=== PATIENT | male | born 1940 | race Caucasian/White ===

== ENCOUNTER 2017-10-22 08:43 | Inpatient (IN) | payer MEDICARE ==
[2017-10-22 09:09] LABS: ADD MAN DIFF? NO
[2017-10-22 09:13] LABS: BASO % 0 % (0-3); EOS % 0 % (0-3); HEMATOCRIT 49.8 % (39.0-53.0); HEMOGLOBIN 17.3 g/dL (13.0-17.5); LYMPH # 2.3 x10^3/uL (1.0-4.8); LYMPH % 22 % (24-48); MEAN CORPUSCULAR HEMOGLOBIN 31 pg (25-35); MEAN CORPUSCULAR HGB CONC 35 g/dL (31-37); MEAN CORPUSCULAR VOLUME 89 fL (79-100); MONO # 0.5 x10^3/uL (0.0-1.1); MONO % 5 % (0-9); NEUT # 7.7 x10^3uL (1.8-7.7); NEUT % 73 % (31-73); PLATELET COUNT 384 x10^3/uL (140-400); RED BLOOD COUNT 5.59 x10^6/uL (4.30-5.70); RED CELL DISTRIBUTION WIDTH 13.2 % (11.5-14.5); WHITE BLOOD COUNT 10.5 x10^3/uL (4.0-11.0)
[2017-10-22] MEDS: IV NORMAL SALINE 1000ML BAG 1,000 ML IV (09:15)
[2017-10-22] MEDS: fentaNYL PF VIAL 100 MCG/2 ML VIAL IV ×7 (09:16→22:18)
[2017-10-22 09:23] LABS: ANION GAP 15 (6-14); BLOOD UREA NITROGEN 31 mg/dL (8-26); BUN/CREATININE RATIO 26 (6-20); CALCIUM 9.9 mg/dL (8.5-10.1); CARBON DIOXIDE 22 mmol/L (21-32); CHLORIDE 102 mmol/L (98-107); CREATININE 1.2 mg/dL (0.7-1.3); GFR 58.9; GLUCOSE 159 mg/dL (70-99); POTASSIUM 4.2 mmol/L (3.5-5.1); SODIUM 139 mmol/L (136-145)
[2017-10-22 09:28] LABS: ALBUMIN/GLOBULIN RATIO 1.1 (1.0-1.7); ALK PHOS 93 U/L (46-116); ALT (SGPT) 82 U/L (16-63); AST (SGOT) 11 U/L (15-37); TOTAL BILIRUBIN 0.9 mg/dL (0.2-1.0); TOTAL PROTEIN 7.7 g/dL (6.4-8.2)
[2017-10-22 09:31] LABS: TROPONINI < 0.017 ng/mL (0.000-0.055)
[2017-10-22] MEDS: ONDANSETRON PF 4 MG/2 ML VIAL. IV (11:18)
[2017-10-22 11:22] LABS: BILIRUBIN,URINE NEGATIVE (NEG); CLARITY,URINE CLEAR; COLOR,URINE YELLOW; GLUCOSE,URINE NEGATIVE (NEG); NITRITE,URINE NEGATIVE (NEG); PROTEIN,URINE NEGATIVE (NEG-TRACE); UROBILINOGEN,URINE 0.2 mg/dL (0.2 mg/dL)
[2017-10-22 11:40] LABS: BACTERIA,URINE 0 /HPF (0-FEW); RBC,URINE 0 /HPF (0-2); SQUAMOUS EPITHELIAL CELL,UR OCC /LPF; WBC,URINE OCC /HPF (0-4)
[2017-10-22] MEDS ORDERED: ONDANSETRON PF 4 MG/2 ML VIAL. IV (12:00)
[2017-10-22] MEDS ORDERED: ACETAMINOPHEN 325 MG TABLET. PO (12:00)
[2017-10-22] MEDS ORDERED: fentaNYL PF VIAL 100 MCG/2 ML VIAL IV (12:00)
[2017-10-22 14:21] LABS: POC GLUCOSE 109 mg/dL (70-99)
[2017-10-22] MEDS: LISINOPRIL 20 MG TABLET PO (17:58)
[2017-10-22] MEDS: CYANOCOBALAMIN (VITAMIN B-12) 1,000 MCG TABLET. PO (17:59)
[2017-10-22] MEDS: ASPIRIN CHEWABLE 81 MG TABLET. PO (17:59)
[2017-10-22] MEDS: LEVOTHYROXINE 88 MCG TABLET PO (18:00)
[2017-10-22] MEDS: IMIPRAMINE 25 MG TABLET PO (18:56)
[2017-10-22] MEDS: ATORVASTATIN CALCIUM 40 MG TABLET. PO (19:57)
[2017-10-22 21:07] LABS: POC GLUCOSE 121 mg/dL (70-99)
[2017-10-23] MEDS: fentaNYL PF VIAL 100 MCG/2 ML VIAL IV ×11 (00:23→23:18)
[2017-10-23 04:26] LABS: ADD MAN DIFF? NO
[2017-10-23 04:37] LABS: BASO # 0.1 x10^3/uL (0.0-0.2); BASO % 1 % (0-3); EOS # 0.2 x10^3/uL (0.0-0.7); EOS % 2 % (0-3); HEMATOCRIT 48.8 % (39.0-53.0); HEMOGLOBIN 17.3 g/dL (13.0-17.5); LYMPH # 3.5 x10^3/uL (1.0-4.8); LYMPH % 34 % (24-48); MEAN CORPUSCULAR HEMOGLOBIN 32 pg (25-35); MEAN CORPUSCULAR HGB CONC 35 g/dL (31-37); MEAN CORPUSCULAR VOLUME 90 fL (79-100); MONO # 1.1 x10^3/uL (0.0-1.1); MONO % 11 % (0-9); NEUT # 5.6 x10^3uL (1.8-7.7); NEUT % 53 % (31-73); PLATELET COUNT 379 x10^3/uL (140-400); RED BLOOD COUNT 5.42 x10^6/uL (4.30-5.70); RED CELL DISTRIBUTION WIDTH 13.5 % (11.5-14.5); WHITE BLOOD COUNT 10.4 x10^3/uL (4.0-11.0)
[2017-10-23 05:07] LABS: ANION GAP 7 (6-14); BLOOD UREA NITROGEN 24 mg/dL (8-26); CARBON DIOXIDE 30 mmol/L (21-32); CHLORIDE 103 mmol/L (98-107); CREATININE 1.1 mg/dL (0.7-1.3); GFR 65.1; GLUCOSE 118 mg/dL (70-99); POTASSIUM 4.2 mmol/L (3.5-5.1); SODIUM 140 mmol/L (136-145)
[2017-10-23] MEDS: PANTOPRAZOLE 40 MG TABLET.DR. PO (07:04)
[2017-10-23] MEDS: LEVOTHYROXINE 88 MCG TABLET PO (07:04)
[2017-10-23 08:13] LABS: POC GLUCOSE 108 mg/dL (70-99)
[2017-10-23] MEDS: CYANOCOBALAMIN (VITAMIN B-12) 1,000 MCG TABLET. PO (08:31)
[2017-10-23] MEDS: metFORMIN 500 MG TABLET PO (08:31)
[2017-10-23] MEDS: LISINOPRIL 20 MG TABLET PO (08:31)
[2017-10-23] MEDS: METOPROLOL SUCC 24HR ER 25 MG TAB.ER.24H. PO (08:31)
[2017-10-23] MEDS: ASPIRIN CHEWABLE 81 MG TABLET. PO (08:31)
[2017-10-23] MEDS ORDERED: METHYLSULFONYLMETHANE PO (09:00)
[2017-10-23] MEDS ORDERED: NON FORMULARY ITEM (Lisinopril 1 TAB) PO (09:00)
[2017-10-23] MEDS: IMIPRAMINE 25 MG TABLET PO (09:01)
[2017-10-23] MEDS: HYDROcodone/APAP 7.5/325MG 1 TAB TABLET PO (11:59)
[2017-10-23] MEDS: CYCLOBENZAPRINE 10 MG TABLET. PO ×2 (13:39→21:14)
[2017-10-23 13:46] LABS: POC GLUCOSE 133 mg/dL (70-99)
[2017-10-23] MEDS: GADOBUTROL 10 MMOL/10 ML VIAL IV (14:15)
[2017-10-23] MEDS: ATORVASTATIN CALCIUM 40 MG TABLET. PO (21:14)
[2017-10-23] MEDS: ONDANSETRON PF 4 MG/2 ML VIAL. IV (21:20)
[2017-10-24] MEDS: CYCLOBENZAPRINE 10 MG TABLET. PO ×4 (02:40→23:40)
[2017-10-24] MEDS: fentaNYL PF VIAL 100 MCG/2 ML VIAL IV ×9 (02:40→23:45)
[2017-10-24] MEDS: hydrALAZINE 20 MG/ML VIAL. IVP (03:05)
[2017-10-24] MEDS: LEVOTHYROXINE 88 MCG TABLET PO (05:53)
[2017-10-24] MEDS: PANTOPRAZOLE 40 MG TABLET.DR. PO (05:53)
[2017-10-24] MEDS: metFORMIN 500 MG TABLET PO (08:18)
[2017-10-24] MEDS: METOPROLOL SUCC 24HR ER 25 MG TAB.ER.24H. PO (08:18)
[2017-10-24] MEDS: CYANOCOBALAMIN (VITAMIN B-12) 1,000 MCG TABLET. PO (08:18)
[2017-10-24] MEDS: LISINOPRIL 20 MG TABLET PO (08:19)
[2017-10-24] MEDS: IMIPRAMINE 25 MG TABLET PO (08:19)
[2017-10-24] MEDS: GADOBUTROL 10 MMOL/10 ML VIAL IV (12:30)
[2017-10-24] MEDS: ATORVASTATIN CALCIUM 40 MG TABLET. PO (20:14)
[2017-10-25] MEDS: fentaNYL PF VIAL 100 MCG/2 ML VIAL IV ×5 (02:28→11:22)
[2017-10-25] MEDS: PANTOPRAZOLE 40 MG TABLET.DR. PO (05:11)
[2017-10-25] MEDS: CYCLOBENZAPRINE 10 MG TABLET. PO (05:11)
[2017-10-25] MEDS: LEVOTHYROXINE 88 MCG TABLET PO (05:12)
[2017-10-25 07:47] LABS: POC GLUCOSE 104 mg/dL (70-99)
[2017-10-25] MEDS ORDERED: DEXAMETHASONE SOD PHOS 20 MG/5 ML VIAL. (07:55)
[2017-10-25] MEDS ORDERED: LIDOCAINE 2% PF Vial for OR 5 ML VIAL. (07:55)
[2017-10-25] MEDS ORDERED: ONDANSETRON PF 4 MG/2 ML VIAL. ×2 (07:55→09:39)
[2017-10-25] MEDS ORDERED: PHENYLEPHRINE 10 MG/ML VIAL. (07:55)
[2017-10-25] MEDS ORDERED: PROPOFOL 50 ML IV (07:55)
[2017-10-25] MEDS ORDERED: MINERAL OIL/PETROLATUM,WHITE OPHTH OINT 3.5GM TUBE. (07:55)
[2017-10-25] MEDS ORDERED: PROPOFOL 20 ML IV (07:55)
[2017-10-25] MEDS ORDERED: ROCURONIUM 50 MG/5 ML VIAL. (07:55)
[2017-10-25] MEDS ORDERED: REMIFENTANIL 2 MG VIAL. IV (07:55)
[2017-10-25] MEDS: metFORMIN 500 MG TABLET PO (08:00)
[2017-10-25] MEDS ORDERED: LIDOCAINE 1% PF 2 ML VIAL. (08:01)
[2017-10-25] MEDS: IMIPRAMINE 25 MG TABLET PO (08:04)
[2017-10-25] MEDS: LISINOPRIL 20 MG TABLET PO (08:04)
[2017-10-25] MEDS: METOPROLOL SUCC 24HR ER 100 MG TAB.ER.24H. PO (08:05)
[2017-10-25] MEDS: CYANOCOBALAMIN (VITAMIN B-12) 1,000 MCG TABLET. PO (08:05)
[2017-10-25] MEDS: IV RINGERS,LACTATED 1000ML 1,000 ML IV (08:10)
[2017-10-25] MEDS: LIDOCAINE 1% PF 2 ML VIAL. ID (08:10)
[2017-10-25] MEDS ORDERED: ONDANSETRON PF 4 MG/2 ML VIAL. IV (08:30)
[2017-10-25] MEDS ORDERED: fentaNYL PF VIAL 100 MCG/2 ML VIAL IV (08:30)
[2017-10-25] MEDS ORDERED: PROCHLORPERAZINE 10 MG/2 ML VIAL. IV (08:30)
[2017-10-25] MEDS: GELATIN SPONGE SIZE 100. (09:13)
[2017-10-25] MEDS: BACITRACIN 50,000 UNIT in IV NORMAL SALINE 1000ML BAG 1,000 ML IRR (09:13)
[2017-10-25] MEDS: BUPIVAC MPF-EPI 0.5%-1:200000 30 ML VIAL. INJ (09:13)
[2017-10-25] MEDS: KETOROLAC 60 MG/2 ML INJ FOR OR. (09:13)
[2017-10-25] MEDS: THROMBIN TOPICAL 20,000 UNIT SPRAY.SYRN KIT TP (09:13)
[2017-10-25] MEDS ORDERED: NEOSTIGMINE 10 MG/10 ML VIAL. (09:36)
[2017-10-25] MEDS ORDERED: GLYCOPYRROLATE 1 MG/5 ML VIAL. (09:37)
[2017-10-25 11:19] LABS: POC GLUCOSE 102 mg/dL (70-99)
[2017-10-25] MEDS: ATORVASTATIN CALCIUM 40 MG TABLET. PO (21:02)
[2017-10-26] MEDS: IMIPRAMINE 25 MG TABLET PO (08:12)
[2017-10-26] MEDS: PANTOPRAZOLE 40 MG TABLET.DR. PO (08:12)
[2017-10-26] MEDS: LISINOPRIL 20 MG TABLET PO (08:13)
[2017-10-26] MEDS: CYANOCOBALAMIN (VITAMIN B-12) 1,000 MCG TABLET. PO (08:13)
[2017-10-26] MEDS: metFORMIN 500 MG TABLET PO (08:14)
[2017-10-26] MEDS: METOPROLOL SUCC 24HR ER 100 MG TAB.ER.24H. PO (08:14)
[2017-10-26] MEDS: LEVOTHYROXINE 88 MCG TABLET PO (08:14)
[2017-10-26] MEDS: SENNOSIDES/DOCUSATE 8.6/50MG TABLET. PO (11:58)
[2017-10-26] MEDS: POLYETHYLENE GLYCOL 3350 17 GM PACKET. PO (11:59)
[2017-10-26] MEDS: CYCLOBENZAPRINE 10 MG TABLET. PO (17:20)
== END 2017-10-26 17:48 | disposition home or self-care (01) | DRG 520 ==
LOC: ER 08:43 → 4 NORTH 11:44
PROC: 0SP20JZ Removal of Synthetic Substitute from Lumbar Vertebral Disc, Open Approach (ICD-10-PCS; principal; 2017-10-25 08:30)
PROC: 0SB20ZZ Excision of Lumbar Vertebral Disc, Open Approach (ICD-10-PCS; 2017-10-25 08:30)
PROC: 01NB0ZZ Release Lumbar Nerve, Open Approach (ICD-10-PCS; 2017-10-25 08:30)
PROC: 4A1104G Monitoring of Peripheral Nervous Electrical Activity, Intraoperative, Open Approach (ICD-10-PCS; 2017-10-25 08:30)
DX: M51.16 Intervertebral disc disorders with radiculopathy, lumbar region (principal); I11.0 Hypertensive heart disease with heart failure; E11.9 Type 2 diabetes mellitus without complications; I50.9 Heart failure, unspecified; E03.9 Hypothyroidism, unspecified; E78.00 Pure hypercholesterolemia, unspecified; E78.5 Hyperlipidemia, unspecified; I25.10 Atherosclerotic heart disease of native coronary artery without angina pectoris; K21.9 Gastro-esophageal reflux disease without esophagitis; Z83.3 Family history of diabetes mellitus; Z88.5 Allergy status to narcotic agent
CPT/HCPCS: 36415; 72148; 72157; 74176; 76000; 80048; 80053; 81001; 82962; 84484; 85025; 93005; 96361; 96374; 96375; 96376; 97116-GP; 97161-GP; 97530-GP; 99285; 99285-25; A7015; A9585; J0360; J0690; J1100; J1885; J2060; J2405; J2704; J2710; J3010; J3490; J7030; J7120